=== PATIENT | female | born 1965 | race Caucasian/White ===

== ENCOUNTER 2017-09-05 19:57 | Inpatient (IN) | payer OTHER ==
[~2017-09-05] VITALS: Ht 167.6 cm; Wt 85.0 kg
[2017-09-05 21:55] LABS: POINT-OF-CARE METER ID UU14100415
[2017-09-05 22:39] LABS: POINT-OF-CARE METER ID UU14100415
[2017-09-05] MEDS ORDERED: ROBAXIN500 MG PO (22:52)
[2017-09-05] MEDS ORDERED: NAPROSYN500 MG PO (22:52)
[2017-09-05 23:23] LABS: POINT-OF-CARE METER ID UU14100415
[2017-09-05 23:38] LABS: POINT-OF-CARE METER ID UU14100415
[2017-09-05 23:56] LABS: POINT-OF-CARE METER ID UU14100415
[2017-09-06 00:07] LABS: BASOPHIL COUNT 0.1 K/uL (0-0.1); EOSINOPHIL (%) 4.7 % (0-5); EOSINOPHIL COUNT 0.3 K/uL (0-0.3); HEMATOCRIT 41.6 % (36.0-46.0); IMMATURE GRANULOCYTE (%) 0.2 % (0.0-0.7); INSTRUMENT ABS NEUTROPHIL CT 2.7 K/uL; LYMPHOCYTE COUNT 2.7 K/uL (1.0-2.8); MCH 29.2 PG (29.0-34.0); MCHC 33.7 G/DL (30.0-36.0); MCV 86.7 FL (83-99); MEAN PLAT.VOLUME 10.5 uM^3 (9.5-12.4); MONOCYTE (%) 8.1 % (3-12); MONOCYTE COUNT 0.5 K/uL (0-0.8); NEUTROPHIL COUNT 2.7 K/uL (1.8-6.4); PLATELET COUNT 256 K/uL (156-360); RBC DIS.WIDTH-CV 12.5 % (11.8-14.6); RBC DIS.WIDTH-SD 39.7 % (39-53); WHITE BLOOD COUNT 6.2 K/uL (4.1-10.2)
[2017-09-06 00:16] LABS: CHLORIDE 101 mEq/L (99-109); POTASSIUM 3.7 mEq/L (3.7-5.4); SODIUM 141 mEq/L (136-147)
[2017-09-06 00:18] LABS: GLUCOSE 65 mg/dL (70-99)
[2017-09-06 00:20] LABS: ANION GAP 12 MEQ/L (2-14); TOTAL BILIRUBIN 0.3 mg/dL (0.0-1.0)
[2017-09-06 00:22] LABS: ALKALINE PHOSPHATASE 76 IU/L (3-129); GFR ESTIMATE (CALCULATED) > 59 mL/min/
[2017-09-06 00:23] LABS: UREA NITROGEN (BUN) 17 mg/dL (9-23)
[2017-09-06 00:25] LABS: ADD MIUA? YES; BILIRUBIN NEGATIVE; BLOOD NEGATIVE; COLOR STRAW ((YELLOW)); GLUCOSE (STRIP) NEGATIVE; KETONES NEGATIVE; LEUKOCYTES SMALL; NITRITE NEGATIVE; PROTEIN (STRIP) NEGATIVE; SPECIFIC GRAVITY 1.008 (1.000-1.030); UROBILINOGEN 0.2 MG/DL (0.2-1.0)
[2017-09-06 00:29] LABS: BACTERIA NONE SEEN /HPF; EPITHELIAL CELLS RARE /HPF; MUCUS TRACE /LPF; RED BLOOD CELLS 0-5 /HPF (0-5); UCUL ADDED? YES
[2017-09-06 01:38] LABS: POINT-OF-CARE METER ID UU13113702
[2017-09-06 03:51] LABS: POINT-OF-CARE METER ID UU13113702
[2017-09-06 04:03] LABS: QUANTITATIVE HCG < 4.0 MIU/ML
[2017-09-06 07:20] LABS: POINT-OF-CARE METER ID UU13113702
[2017-09-06] MEDS ORDERED: ATORVASTATIN CA10 MG PO (08:40)
[2017-09-06] MEDS ORDERED: ATARAX,VISTARIL25 MG PO (08:41)
[2017-09-06] MEDS ORDERED: INSULIN PUMP MC (08:44)
[2017-09-06] MEDS ORDERED: HUMALOG100 UNIT/1 SC (08:45)
[2017-09-06] MEDS ORDERED: LEVOTHYROXINE75 MCG PO (08:47)
[2017-09-06] MEDS ORDERED: LISINOPRIL10 MG PO (08:47)
[2017-09-06] MEDS ORDERED: FLONASE16 G1 BOTH NARES (08:48)
[2017-09-06] MEDS ORDERED: PROAIR HFA8.5 GM IH (08:48)
[2017-09-06 09:22] LABS: POINT-OF-CARE METER ID UU13113702
[2017-09-06 10:57] LABS: POINT-OF-CARE METER ID UU13113702
[2017-09-06 12:03] LABS: POINT-OF-CARE METER ID UU13113702
[2017-09-06 13:15] LABS: POINT-OF-CARE METER ID UU13113702
[2017-09-06 14:21] LABS: POINT-OF-CARE METER ID UU13113702
[2017-09-06 16:39] VITALS: BP 146/73
[2017-09-06 16:44] VITALS: BP 146/73
[2017-09-06 17:11] LABS: POINT-OF-CARE METER ID UU14314088
[2017-09-06 18:28] LABS: POINT-OF-CARE METER ID UU14314088
[2017-09-06 19:42] LABS: POINT-OF-CARE METER ID UU13113781
[2017-09-06 19:49] VITALS: BP 136/74
[2017-09-06 23:38] VITALS: BP 158/66
[2017-09-07 01:59] LABS: POINT-OF-CARE METER ID UU13113698
[2017-09-07 03:27] VITALS: BP 135/78
[2017-09-07 03:58] LABS: POINT-OF-CARE METER ID UU13113698
[2017-09-07 07:09] VITALS: BP 131/66
[2017-09-07 07:52] LABS: POINT-OF-CARE METER ID UU14174216
[2017-09-07 08:10] LABS: POINT-OF-CARE METER ID UU14314088
[2017-09-07] MEDS ORDERED: LEVEMIR FL100 UNIT/1 SC (09:59)
[2017-09-07] MEDS ORDERED: NOVOLOG PE100 UNITS/ SC ×2 (10:03→11:33)
[2017-09-07 10:44] VITALS: BP 138/74
[2017-09-07 10:51] LABS: POINT-OF-CARE METER ID UU13113698
[2017-09-07] MEDS ORDERED: COMFORT EZ MC (11:23)
[2017-09-07 11:24] LABS: POINT-OF-CARE METER ID UU14314088
[2017-09-07 11:40] LABS: Estimated Average Glucose 255 mg/dL (70-123); HEMOGLOBIN A1c (GLYCOHEMOGLOB) 10.5 % HGB (Below 5.7)
== END 2017-09-07 12:45 | disposition home or self-care (01) | DRG 563 ==
LOC: EME 19:57 → EDOF 09-06 02:42 → ENRESERV 09-06 02:57 → CANRESERV 09-06 03:31 → ENRESERV 09-06 03:31 → EDOF 09-06 05:11 → ENRESERV 09-06 05:12 → EDOF 09-06 05:13 → ENRESERV 09-06 14:16 → CANRESERV 09-06 14:35 → ENRESERV 09-06 14:59 → 4EAST 09-06 16:33 → ENPENDDIS 09-07 → 4EAST 09-07 12:45
PROVIDERS: Emergency Medicine; Hospitalist; Internal Medicine
DX: S46.912A Strain of unspecified muscle, fascia and tendon at shoulder and upper arm level, left arm, initial encounter (principal); E10.649 Type 1 diabetes mellitus with hypoglycemia without coma; M25.512 Pain in left shoulder; S43.402A Unspecified sprain of left shoulder joint, initial encounter; X58.XXXA Exposure to other specified factors, initial encounter; Y93.9 Activity, unspecified; Y92.89 Other specified places as the place of occurrence of the external cause; Y99.0 Civilian activity done for income or pay; Z96.41 Presence of insulin pump (external) (internal); Z79.4 Long term (current) use of insulin; Z85.118 Personal history of other malignant neoplasm of bronchus and lung; Z90.2 Acquired absence of lung [part of]; Z90.49 Acquired absence of other specified parts of digestive tract; Z88.2 Allergy status to sulfonamides; Z90.89 Acquired absence of other organs
CPT/HCPCS: 71020; 80053; 81003; 82948; 83036; 84702; 85025; 87086; 99281; 99285; J1650; J1885; J2270; J7030; J7042